=== PATIENT | female | born 1960 | race Caucasian/White ===

== ENCOUNTER 2023-04-18 08:20 | Emergency (ER) | payer OTHER | END 2023-04-18 09:57 | disposition home or self-care (01) | LOC: JP.ED 08:20 | DX: M25.561 Pain in right knee (principal); E03.9 Hypothyroidism, unspecified; Z88.1 Allergy status to other antibiotic agents; Z88.7 Allergy status to serum and vaccine; Z79.899 Other long term (current) drug therapy | CPT/HCPCS: 73562-RT; 99283 ==